=== PATIENT | male | born 1980 | race Caucasian/White ===

== ENCOUNTER 2019-02-07 18:56 | Emergency (ER) | payer BC, OTHER ==
[~2019-02-07] VITALS: Ht 175.3 cm; Wt 90.7 kg
[2019-02-07] MEDS ORDERED: IBUPROFEN 800 MG (MOTRIN) TAB PO ONE (19:00)
[2019-02-07] MEDS ORDERED: RT-ALBUTEROL/IPRATROPIUM 3 ML (DUONEB) VIAL INH ONE (19:00)
--- NOTE | 2019-02-07 19:04 | ED Chest Pain ---
General Stated Complaint: CHEST PAIN Source: patient Exam Limitations: no limitations History of Present Illness Date Seen by Provider: Feb 07, 2019 Time Seen by Provider: 19:02 Initial Comments To ER with reports of chest pain. This began at about noon while at work, he works in [employer]. He presented to [facility] [place] urgent care about an hour ago with a report of chest pain that radiates down both arms and affects the legs, he is also short of breath. He was given aspirin 324 mg and 1 nitroglycerin sublingual. A nitroglycerin worsen his pain he states. The pain is now localized to the right side of his chest worsened with deep breathing. He denies cough fevers or chills lately. He does smoke 1 pack of cigarettes daily. Timing/Duration: changing over time Severity/Quality: moderate Radiation: no radiation Activities at Onset: none ASA po PIG CONVEYOR OPERATOR: No NTG SL PIG CONVEYOR OPERATOR: No Associated Symptoms: shortness of breath Allergies and Home Medications Allergies Coded Allergies: No Known Drug Allergies (Unverified , 02/07/19) Patient Home Medication List Home Medication List Reviewed: Yes Review of Systems Review of Systems Constitutional: see HPI; No chills, No fever EENTM: No Symptoms Reported Respiratory: See HPI, Shortness of Air Cardiovascular: See HPI, Chest Pain Gastrointestinal: See HPI Genitourinary: No Symptoms Reported Musculoskeletal: no symptoms reported Skin: no symptoms reported Psychiatric/Neurological: No Symptoms Reported Endocrine: No Symptoms Reported Hematologic/Lymphatic: No Symptoms Reported Physical Exam Vital Signs Capillary Refill : Height, Weight, BMI Height: '" Weight: lbs. oz. kg; BMI Method: General Appearance: No Apparent Distress, WD/WN, Other (he is neither tachyca rdic nor hypoxic though he is a bit tachypneic at about 24.) HEENT: PERRL/EOMI Neck: Full Range of Motion, Normal Inspection Respiratory: No Accessory Muscle Use, No Respiratory Distress, Other (crackles right lower lobe posteriorly) Cardiovascular: Regular Rate, Rhythm, Normal Peripheral Pulses Gastrointestinal: Non Tender, Soft Extremity: Normal Capillary Refill, Normal Inspection Neurologic/Psychiatric: Alert, Oriented x3 Skin: Normal Color, Warm/Dry Progress/Results/Core Measures Results/Orders Lab Results Laboratory Tests Test 02/07/19 19:06 Range/Units White Blood Count 9.7 4.3-11.0 10^3/uL Red Blood Count 4.30 L 4.35-5.85 10^6/uL Hemoglobin 15.2 13.3-17.7 G/DL Hematocrit 43 40-54 % Mean Corpuscular Volume 100 H 80-99 FL Mean Corpuscular Hemoglobin 35 H 25-34 PG Mean Corpuscular Hemoglobin Concent 36 32-36 G/DL Red Cell Distribution Width 13.2 10.0-14.5 % Platelet Count 276 130-400 10^3/uL Mean Platelet Volume 10.0 7.4-10.4 FL Neutrophils (%) (Auto) 82 H 42-75 % Lymphocytes (%) (Auto) 10 L 12-44 % Monocytes (%) (Auto) 8 0-12 % Eosinophils (%) (Auto) 1 0-10 % Basophils (%) (Auto) 0 0-10 % Neutrophils # (Auto) 8.0 H 1.8-7.8 X 10^3 Lymphocytes # (Auto) 0.9 L 1.0-4.0 X 10^3 Monocytes # (Auto) 0.8 0.0-1.0 X 10^3 Eosinophils # (Auto) 0.1 0.0-0.3 10^3/uL Basophils # (Auto) 0.0 0.0-0.1 10^3/uL D-Dimer < 0.27 0.00-0.49 UG/ML Sodium Level 138 135-145 MMOL/L Potassium Level 4.1 3.6-5.0 MMOL/L Chloride Level 108 H 98-107 MMOL/L Carbon Dioxide Level 22 21-32 MMOL/L Anion Gap 8 5-14 MMOL/L Blood Urea Nitrogen 12 7-18 MG/DL Creatinine 0.88 0.60-1.30 MG/DL Estimat Glomerular Filtration Rate > 60 BUN/Creatinine Ratio 14 Glucose Level 99 70-105 MG/DL Calcium Level 8.6 8.5-10.1 MG/DL Corrected Calcium 8.5 8.5-10.1 MG/DL Total Bilirubin 0.9 0.1-1.0 MG/DL Aspartate Amino Transf (AST/SGOT) 25 5-34 U/L Alanine Aminotransferase (ALT/SGPT) 42 0-55 U/L Alkaline Phosphatase 64 40-136 U/L Troponin I < 0.028 <0.028 NG/ML Total Protein 6.6 6.4-8.2 GM/DL Albumin 4.1 3.2-4.5 GM/DL My Orders Orders - FADI MOJICA APRN Cbc With Automated Diff (02/07/19 19:00) Comprehensive Metabolic Panel (02/07/19 19:00) Fibrin Degradation Products (02/07/19 19:00) Ibuprofen Tablet (Motrin Tablet) (02/07/19 19:00) Ekg Tracing (02/07/19 19:00) Troponin I (02/07/19 19:00) Chest Pa/Lat (2 View) (02/07/19 19:00) Albuterol/Ipra Inhalation Soln (Duoneb I (02/07/19 19:00) Svn Small Volume Nebulizer (02/07/19 19:00) Ct Chest W (02/07/19 19:41) Medications Given in ED Current Medications Medications Dose Ordered Sig/Mau Route Start Time Stop Time Status Last Admin Dose Admin Albuterol/ Ipratropium 3 ml ONCE ONCE INH 02/07/19 19:00 02/07/19 19:02 DC 02/07/19 19:22 3 ML Ibuprofen 800 mg ONCE ONCE PO 02/07/19 19:00 02/07/19 19:02 DC 02/07/19 19:21 800 MG Progress Progress Note : Progress Note 1946-chest x-ray fails to reveal infiltrate. However, he has a temperature of 100.1, pleuritic chest pain, shortness of breath, discussed with him possibly proceeding with a CT scan of the chest. He states he would like to just be treated for pneumonia and he'll follow-up if he doesn't get any better. This is a reasonable plan. Departure Impression Primary Impression: Right lower lobe pneumonia Qualified Codes: J18.1 - Lobar pneumonia, unspecified organism Disposition: HOME, SELF-CARE Condition: Stable Departure-Patient Inst. Decision time for Depature: 19:47 Patient Instructions: Pneumonia in Adults Add. Discharge Instructions: 1. Medication as directed 2. Follow-up with your doctor next week 3. Return to ER for any worsening. Scripts Azithromycin (Azithromycin) 250 Mg Tablet 250 MG PO UD, #6 TAB TAKE 2 TABLETS ON DAY ONE THEN TAKE 1 TABLET DAILY FOR FOUR MORE DAYS Prov: FADI MOJICA APRN 02/07/19 Amoxicillin (Amoxicillin) 500 Mg Capsule 500 MG PO TID, #21 CAP 0 Refills Prov: FADI MOJICA APRN 02/07/19 FADI MOJICA APRN Feb 07, 2019 19:03
[2019-02-07 19:19] LABS: BASOPHILS % (AUTO) 0 % (0-10); EOSINOPHILS # (AUTO) 0.1 10^3/uL (0.0-0.3); EOSINOPHILS % (AUTO) 1 % (0-10); HEMATOCRIT 43 % (40-54); HEMOGLOBIN 15.2 G/DL (13.3-17.7); LYMPHOCYTES # (AUTO) 0.9 X 10^3 (1.0-4.0); LYMPHOCYTES % (AUTO) 10 % (12-44); MEAN CORPUSCULAR HEMOGLOBIN 35 PG (25-34); MEAN CORPUSCULAR HGB CONC 36 G/DL (32-36); MEAN CORPUSCULAR VOLUME 100 FL (80-99); MONOCYTES # (AUTO) 0.8 X 10^3 (0.0-1.0); MONOCYTES % (AUTO) 8 % (0-12); NEUTROPHILS % (AUTO) 82 % (42-75); PLATELET COUNT 276 10^3/uL (130-400); RED CELL DISTRIBUTION WIDTH 13.2 % (10.0-14.5); WHITE BLOOD COUNT 9.7 10^3/uL (4.3-11.0)
[2019-02-07 19:34] LABS: ALANINE AMINOTRANSFERASE 42 U/L (0-55); ALBUMIN 4.1 GM/DL (3.2-4.5); ALKALINE PHOSPHATASE 64 U/L (40-136); BILIRUBIN,TOTAL 0.9 MG/DL (0.1-1.0); BUN/CREATININE RATIO 14; CALCIUM 8.6 MG/DL (8.5-10.1); CARBON DIOXIDE 22 MMOL/L (21-32); CHLORIDE 108 MMOL/L (98-107); CREATININE SERUM 0.88 MG/DL (0.60-1.30); GFR ESTIMATED > 60; GLUCOSE 99 MG/DL (70-105); POTASSIUM 4.1 MMOL/L (3.6-5.0); SODIUM 138 MMOL/L (135-145); TOTAL PROTEIN 6.6 GM/DL (6.4-8.2)
--- NOTE | 2019-02-07 19:40 | Diagnostic Imaging Report ---
INDICATION: Chest pain. EXAMINATION: PA and lateral views of the chest. FINDINGS: The heart size and vascularity are normal. Lungs are clear. There is no effusion. There is no acute bony abnormality. IMPRESSION: No acute abnormality is seen. Dictated by: Dictated on workstation # [id number]
[2019-02-07] MEDS ORDERED: AMOX500C2 PO (19:48)
[2019-02-07] MEDS ORDERED: AZIT250T12 PO (19:48)
[2019-02-07 19:55] VITALS: BP 148/98
[2019-02-07] MEDS ORDERED: AUGMENTIN 875 MG TAB (AMOXICILLIN/CLAVULANATE) PO SCH (20:00)
== END 2019-02-07 19:55 | disposition home or self-care (01) ==
LOC: EDUNIT# 18:56 → ER 18:58
DX: J18.1 Lobar pneumonia, unspecified organism (principal)
CPT/HCPCS: 36415; 71046; 80053; 84484; 85025; 85379; 93005